=== PATIENT | female | born 1945 | race Caucasian/White ===

== ENCOUNTER 2017-03-30 10:36 | Outpatient (CLI) | payer MEDICARE ==
[2017-03-30 17:30] LABS: BASOPHILS # (AUTO) 0.1 10^3/uL (0.0-0.1); BASOPHILS % (AUTO) 1.4 %; EOSINOPHILS # (AUTO) 0.1 10^3/uL (0.0-0.7); HGB - HEMOGLOBIN 14.7 g/dL (12.0-16.0); LYMPHOCYTES # (AUTO) 1.2 10^3/uL (1.5-3.5); LYMPHOCYTES % (AUTO) 25.1 %; MEAN CORPUSCULAR HEMOGLOBIN 31.6 pg (27.0-31.0); MEAN CORPUSCULAR VOLUME 92.8 fL (81.0-99.0); MONOCYTES # (AUTO) 0.3 10^3/uL (0.0-1.0); MONOCYTES % (AUTO) 7.1 %; NEUTROPHILS # (AUTO) 2.9 10^3/uL (1.5-6.6); NEUTROPHILS % (AUTO) 63.4 %; PLT - PLATELET COUNT 189 10^3/uL (130-450); RED BLOOD COUNT 4.65 10^6/uL (4.20-5.40); WHITE BLOOD COUNT 4.6 x10^3/uL (4.8-10.8)
[2017-03-30 17:49] LABS: HB2 TOTAL 16.2 g/dL; HEMOGLOBIN A1C 1.11 g/dL; HEMOGLOBIN A1C % 8.4 % (4.6-6.2)
[2017-03-30 17:52] LABS: ALBUMIN 4.4 g/dL (3.2-5.5); ALBUMIN/GLOBULIN RATIO 1.8 (1.0-2.2); ALKALINE PHOSPHATASE 80 IU/L (42-121); ALT ALANINE AMINOTRANSFERASE 57 IU/L (10-60); AST ASPARTATE AMINOTRANSFERASE 33 IU/L (10-42); BILIRUBIN,TOTAL 0.7 mg/dL (0.2-1.0); BUN - BLOOD UREA NITROGEN 11 mg/dL (6-20); CALCIUM 9.1 mg/dL (8.5-10.3); CARBON DIOXIDE - CO2 29 mmol/L (21-32); CHLORIDE 95 mmol/L (101-111); CHOLESTEROL 215 mg/dL; CREATININE 0.8 mg/dL (0.4-1.0); GFR - MDRD 71 (>89); GLUCOSE 238 mg/dL (70-100); HDL CHOLESTEROL 36 mg/dL; LDL CHOLESTEROL,CALCULATED 128 mg/dL; LDL/HDL RATIO 3.6 (<4.4); SODIUM 132 mmol/L (135-145); TOTAL PROTEIN 6.8 g/dL (6.7-8.2); VLDL CHOLESTEROL 51 mg/dL
== END 2017-03-30 10:37 | disposition home or self-care (01) ==
LOC: LAB.F 10:36
PROVIDERS: ATTEND Nurse Practitioner Family
DX: E11.65 Type 2 diabetes mellitus with hyperglycemia (principal); E78.5 Hyperlipidemia, unspecified; E03.9 Hypothyroidism, unspecified; Z13.0 Encounter for screening for diseases of the blood and blood-forming organs and certain disorders involving the immune mechanism
CPT/HCPCS: 36415; 80053; 80061; 83036; 84443; 85025

== ENCOUNTER 2017-04-02 19:32 | Emergency (ER) | payer MEDICARE ==
[2017-04-02] MEDS ORDERED: HYDROmorphone 1 MG/ML SYRINGE IVP STA (20:29)
--- NOTE | 2017-04-02 20:31 | ED Physician Documentation ---
History of Present Illness - Stated complaint Stated Complaint: GLF - Chief complaint Chief Complaint: Trauma Hd/Nk - History obtained from History obtained from: Patient, Family - History of Present Illness Timing: How many hours ago (1) Pain level max: 9 Pain level now: 9 Improved by: remaining still Worsened by: any movement of the R arm. - Additonal information Additional information: Patient is a 71-year-old female who tripped and fell tonight at the [email or web address], she struck her head on the bar on the way down and then landed on the right ribs on a brass rail. Now complaining of pain to the right ribs and headache. No loss of consciousness. Was initially dazed and altered. No vomiting. No neck or back pain. Review of Systems Ten Systems: 10 systems reviewed and negative Constitutional: denies: Fever, Chills Ears: denies: Ear pain Nose: denies: Rhinorrhea / runny nose, Congestion Throat: denies: Sore throat Cardiac: denies: Chest pain / pressure Respiratory: denies: Cough, Wheezing GI: denies: Abdominal Pain, Nausea, Vomiting, Diarrhea Skin: denies: Rash Musculoskeletal: denies: Neck pain, Back pain Neurologic: reports: Headache, Head injury. denies: Focal weakness, Numbness, LOC PD PAST MEDICAL HISTORY - Past Medical History Past Medical History: Yes Cardiovascular: Hypertension Endocrine/Autoimmune: Type 2 diabetes, HyPOthyroidism Other Past Medical History: cervical cancer - Past Surgical History Past Surgical History: Yes - Present Medications Home Medications: Ambulatory Orders Medication Instructions Recorded Confirmed Cyclobenzaprine [Flexeril] 10 mg PO TID PRN #20 tablet 04/02/17 Hydrochlorothiazide 1 tab PO DAILY 04/02/17 04/02/17 Hydrocodone/Acetaminophen 1 - 2 each PO Q6H PRN #14 tablet 04/02/17 [Hydrocodon-Acetaminophen 5-325] Insulin Aspart [NovoLOG] 04/02/17 Insulin Lispro [Humalog] 04/02/17 Levothyroxine [Synthroid] 1 tab PO DAILY 04/02/17 04/02/17 Meloxicam [Mobic] 15 mg PO DAILY PRN #20 tablet 04/02/17 - Allergies Allergies/Adverse Reactions: Allergies Allergy/AdvReac Type Severity Reaction Status Date / Time metformin Allergy Unknown Verified 04/02/17 19:42 - Social History Does the pt smoke?: No Smoking Status: Never smoker ETOH Use: Wine Does the pt have substance abuse?: No PD ED PE NORMAL - Vitals Vital signs reviewed: Yes - General General: Alert and oriented X 3, No acute distress, Well developed/nourished - HEENT HEENT: Atraumatic, PERRL, Ears normal, Moist mucous membranes, Pharynx benign - Neck Neck: Supple, no meningeal sign, No bony TTP, Other (FROM without pain) - Cardiac Cardiac: RRR, Strong equal pulses - Respiratory Respiratory: No respiratory distress, Clear bilaterally, Other (significant TTP along the R mid axillar ribs. no crepitus. no ecchymosis. ) - Abdomen Abdomen: Soft, Non tender, Non distended - Back Back: No spinal TTP - Derm Derm: Warm and dry - Extremities Extremities: Other (No tenderness over the R clavicle, shoulder, humerus, scapula, elbow or forearm. NVI including axillary nerve) - Neuro Neuro: Alert and oriented X 3, marine mammal trainer 2-12 intact, No motor deficit, No sensory deficit, Normal speech Eye Opening: Spontaneous Motor: Obeys Commands Verbal: Oriented GCS Score: 15 - Psych Psych: Normal mood, Normal affect Results - Vitals Vitals: Vital Signs - 24 hr 04/02/17 04/02/17 04/02/17 19:35 19:48 23:56 Temperature 36.8 C 36.5 C 36.6 C Heart Rate 78 74 88 Respiratory 20 18 20 Rate Blood Pressure 148/65 H 169/97 H 157/84 H O2 Saturation 98 98 98 Oxygen O2 Source Room air - Labs Labs: Laboratory Tests 04/02/17 04/02/17 20:40 20:40 WBC 5.7 RBC 4.55 Hgb 14.6 Hct 42.2 MCV 92.8 MCH 32.1 H MCHC 34.6 RDW 12.7 Plt Count 198 MPV 8.4 Neut # 3.6 Lymph # 1.4 L [place] # 0.4 Eos # 0.1 Baso # 0.1 Absolute Nucleated RBC 0.00 Nucleated RBC % 0.0 Sodium 133 L Potassium 3.2 L Chloride 92 L Carbon Dioxide 28 Anion Gap 13.0 BUN 12 Creatinine 0.7 Estimated GFR (MDRD) 83 L Glucose 210 H Calcium 9.0 Total Bilirubin 0.7 AST 34 ALT 60 Alkaline Phosphatase 85 Total Protein 7.2 Albumin 4.5 Globulin 2.7 Albumin/Globulin Ratio 1.7 Lipase 14 L - Rads (name of study) head CT Radiology: Prelim report reviewed, EMP read contemporaneously, See rad report ( normal) chest CT Radiology: Prelim report reviewed, EMP read contemporaneously, See rad report ( normal) PD MEDICAL DECISION MAKING - ED course Complexity details: reviewed results, re-evaluated patient, considered differential, d/w patient, d/w family ED course: Patient is a 71-year-old female who presents to the emergency department after a fall today. She did strike her head, does not think she lost consciousness, but was mildly altered initially, therefore head CT was performed which shows no acute abnormalities. Also has significant tenderness over the right rib cage , unable to move her right arm because of the pain in her ribs. Therefore a CT scan was performed which shows no acute abnormalities. Pain well controlled. No spine injuries. Will follow up closely with her PCP. Full range of motion of the cervical spine without pain including full flexion and extension. Neurovascularly intact. Patient and family counseled regarding signs and symptoms for which I believe and urgent re-evaluation would be necessary. Patient with good understanding of and agreement to plan and is comfortable going home at this time This document was made in part using voice recognition software. While efforts are made to proofread this document, sound alike and grammatical errors may occur. Departure - Departure Disposition: 01 Home, Self Care Clinical Impression: Hyponatremia Contusion of rib on right side Qualifiers: Encounter type: initial encounter Qualified Code(s): S20.211A - Contusion of right front wall of thorax, initial encounter Head injury Qualifiers: Encounter type: initial encounter Qualified Code(s): S09.90XA - Unspecified injury of head, initial encounter Condition: Good Instructions: ED Contusion Chest Wall, ED Head Injury Closed Follow-Up: your,doctor in 1 week [Other] Prescriptions: Cyclobenzaprine [Flexeril] 10 mg PO TID PRN #20 tablet PRN Reason: Spasms Hydrocodone/Acetaminophen [Hydrocodon-Acetaminophen 5-325] 1 - 2 each PO Q6H PRN #14 tablet PRN Reason: pain Meloxicam [Mobic] 15 mg PO DAILY PRN #20 tablet PRN Reason: pain Comments: Return if you worsen. You will be very sore tomorrow. Your CT scans are normal tonight. Your sodium levels were mildly low tonight, you should have this rechecked with your doctor. Do not drink alcohol or drive while on narcotic pain medicine. Note that many narcotic pain relievers also contain tylenol/acetaminophen. Please ensure that your total dose of acetaminophen from all sources does not exceed 3 grams (3000mg) per day. You may constipated on this medication, take a stool softener such as "Colace" twice a day while you are on it. Also recommend a [id number]-stf-[id number] laxative such as senna or MiraLAX any day that you do not have a bowel movement. If you received narcotic pain medication in the emergency department, do not drive or operate machinery for the next 24 hours. Discharge Date/Time: 04/02/17 23:57
[2017-04-02 20:50] LABS: BASOPHILS # (AUTO) 0.1 10^3/uL (0.0-0.1); BASOPHILS % (AUTO) 1.3 %; EOSINOPHILS # (AUTO) 0.1 10^3/uL (0.0-0.7); HGB - HEMOGLOBIN 14.6 g/dL (12.0-16.0); LYMPHOCYTES # (AUTO) 1.4 10^3/uL (1.5-3.5); LYMPHOCYTES % (AUTO) 25.5 %; MEAN CORPUSCULAR HEMOGLOBIN 32.1 pg (27.0-31.0); MEAN CORPUSCULAR HGB CONC 34.6 g/dL (32.0-36.0); MEAN CORPUSCULAR VOLUME 92.8 fL (81.0-99.0); MEAN PLATELET VOLUME 8.4 fL (7.9-10.8); MONOCYTES # (AUTO) 0.4 10^3/uL (0.0-1.0); MONOCYTES % (AUTO) 6.8 %; NEUTROPHILS # (AUTO) 3.6 10^3/uL (1.5-6.6); NEUTROPHILS % (AUTO) 64.4 %; PLT - PLATELET COUNT 198 10^3/uL (130-450); RED BLOOD COUNT 4.55 10^6/uL (4.20-5.40); RED CELL DISTRIBUTION WIDTH 12.7 % (12.0-15.0); WHITE BLOOD COUNT 5.7 x10^3/uL (4.8-10.8)
[2017-04-02] MEDS ORDERED: IOPAMIDOL-300 100 ML VIAL ONE (20:50)
[2017-04-02 21:04] LABS: ALBUMIN 4.5 g/dL (3.2-5.5); ALBUMIN/GLOBULIN RATIO 1.7 (1.0-2.2); BILIRUBIN,TOTAL 0.7 mg/dL (0.2-1.0); CREATININE 0.7 mg/dL (0.4-1.0); TOTAL PROTEIN 7.2 g/dL (6.7-8.2)
[2017-04-02] MEDS ORDERED: IOPAMIDOL-300 100 ML VIAL IVP ONE (21:29)
[2017-04-02] MEDS ORDERED: ONDANSETRON 4 MG/2 ML VIAL IVP STA (21:35)
--- NOTE | 2017-04-02 21:47 | CT Report ---
EXAM: CT CHEST EXAM DATE: 04/02/2017 09:30 PM. CLINICAL HISTORY: Fall, R rib and chest pain. COMPARISONS: None. TECHNIQUE: Routine helical CT imaging was performed through the chest. IV contrast: 80 cc Isovue 300 IV. Reconstructions: Coronal and sagittal. In accordance with CT protocol optimization, one or more of the following dose reduction techniques w ere utilized for this exam: automated exposure control, adjustment of mA and/or KV based on patient s ize, or use of iterative reconstructive technique. FINDINGS: Lungs/Pleura: No nodules, bronchial thickening, consolidation, or edema. Pulmonary vasculature is nor mal. No pericardial or pleural effusion. No pneumothorax. Mediastinum: Normal. No adenopathy or masses. The heart and great vessels are normal. Bones: No fracture demonstrated. Visualized Abdomen: Liver parenchyma is low in density consistent with steatosis. Other: None. IMPRESSION: Negative CT chest. [facility] Referring Provider Line: [phone] SITE ID: [id number]
--- NOTE | 2017-04-02 21:49 | CT Report ---
EXAM: CT HEAD EXAM DATE: 04/02/2017 09:23 PM. CLINICAL HISTORY: Fall, head injury. COMPARISON: None. TECHNIQUE: Multiaxial CT images were obtained from the foramen magnum to the vertex. Reformats: Coron al. IV contrast: None. In accordance with CT protocol optimization, one or more of the following dose reduction techniques w ere utilized for this exam: automated exposure control, adjustment of mA and/or KV based on patient s ize, or use of iterative reconstructive technique. FINDINGS: Parenchyma: There are mild basal ganglia calcifications. Negative for intracranial acute hemorrhage. No midline shift or mass effect. Extraaxial Spaces: No subdural or epidural collections identified. Ventricles: Normal in size and position. Sinuses and Orbits: Imaged paranasal sinuses, orbits, and mastoids show no significant abnormality. Bones: No evidence of fracture or calvarial defect. Other: None. IMPRESSION: 1. No acute focal intracranial abnormality. [facility] Referring Provider Line: [phone] SITE ID: [id number]
[2017-04-02] MEDS ORDERED: KETOROLAC 60 MG/2 ML VIAL IVP STA (22:38)
[2017-04-02] MEDS ORDERED: LIDOCAINE PATCH 5% TOP STA (22:38)
[2017-04-02] MEDS ORDERED: CYCLOBENZAPRINE 10 MG TABLET PO STA (22:38)
[2017-04-02] MEDS ORDERED: SODIUM CHLORIDE 0.9% 1,000 ML IV ONE (22:44)
[2017-04-02] MEDS ORDERED: POTASSIUM BICARB 25 MEQ TABLET PO STA (22:45)
[2017-04-02 23:57] VITALS: BP 157/84
== END 2017-04-02 23:57 | disposition home or self-care (01) ==
LOC: ED 19:32
DX: E87.1 Hypo-osmolality and hyponatremia (principal); S20.211A Contusion of right front wall of thorax, initial encounter; S09.90XA Unspecified injury of head, initial encounter; W01.198A Fall on same level from slipping, tripping and stumbling with subsequent striking against other object, initial encounter; Y92.89 Other specified places as the place of occurrence of the external cause; I10 Essential (primary) hypertension; E11.9 Type 2 diabetes mellitus without complications; E03.9 Hypothyroidism, unspecified; Z85.41 Personal history of malignant neoplasm of cervix uteri; Z79.4 Long term (current) use of insulin
CPT/HCPCS: 36415; 70450; 71260; 80053; 83690; 85025; 96361; 96374; 96375; 99284; A9270; J1170; Q9967

== ENCOUNTER 2017-05-28 15:08 | Outpatient (CLI) | payer MEDICARE ==
--- NOTE | 2017-05-28 16:26 | Ultrasound Report ---
EXAM: THYROID ULTRASOUND EXAM DATE: 05/28/2017 03:47 PM. CLINICAL HISTORY: Asymptomatic menopausal state/thyroid nodule, left. COMPARISON: CT chest with contrast 04/02/2017. TECHNIQUE: Real time sonographic imaging of the thyroid was performed by the assistant general manager. Multiple re presentative static images were saved for review. FINDINGS: THYROID GLAND: Right Lobe: 3.0 x 1.1 x 1.4 cm, volume 2.4 cc. Normal background echotexture, but small in size. Right Lobe Nodules: None. Left Lobe: 3.3 x 0.8 x 1.7 cm, volume 2.3 cc. Normal background echotexture, but small in size. Left Lobe Nodules: Within the inferior pole, there is a well-circumscribed mildly hyperechoic solid l esion with small cystic spaces and no microcalcifications with internal vascularity by color Doppler measuring 0.7 x 0.7 x 0.6 cm. This is a low suspicion pattern by TOMA guidelines. A subcentimeter prob able cyst present within the inferior aspect of the left thyroid lobe anteriorly. Isthmus: 0.5 cm AP. Isthmic Nodules: Within the right aspect of the isthmus, there is a well-circumscribed mixed hypo- an d hyperechoic lesion which appears solid. There is a punctate focus of hyperechogenicity, which could represent a microcalcification. No internal vascularity by color Doppler. This measures 0.6 x 0.4 x 0.6 cm. While, if this focus does represent a microcalcification, the lesion may be considered high s uspicion, the small size is below TOMA limits for FNA. LYMPH NODES: No adenopathy demonstrated in the central or lateral compartment. OTHER: None. IMPRESSION: 1. There are two subcentimeter thyroid nodules, one in the left thyroid lobe and another in the isthm us, which do not meet FNA criteria given their small size. Recommend follow-up ultrasound in 12 month s. 2. Thyroid gland is smaller than typical measuring less than 5 cc when the right and left lobes are c ombined. Management recommendations are based on 2015 [place] [employer] Management Guidelines for A dult Patients with Thyroid Nodules and Differentiated Thyroid Cancer. [facility] Referring Provider Line: [phone] SITE ID: [id number]
== END 2017-05-28 15:09 | disposition home or self-care (01) ==
LOC: DI 15:08
PROVIDERS: ATTEND Nurse Practitioner Family
DX: E04.1 Nontoxic single thyroid nodule (principal); Z78.0 Asymptomatic menopausal state
CPT/HCPCS: 76536

== ENCOUNTER 2017-06-09 08:22 | Outpatient (CLI) | payer MEDICARE ==
--- NOTE | 2017-06-10 13:32 | Mammography Report ---
DIGITAL SCREENING MAMMOGRAM: 06/09/2017 CLINICAL INDICATION: A 72-year-old for screening. COMPARISON: 05/2016, 05/2015, 01/2014, 01/2013, 01/2012, 01/2011, 11/2009. TECHNIQUE: Routine CC and MLO projections were obtained of the breasts as well as bilateral laterally exaggerated craniocaudal views. FINDINGS: The breasts demonstrate heterogeneously dense fibroglandular parenchyma bilaterally. Coarse and punctate, typically benign calcifications are present. No suspicious masses, clustered microcalcifications, or regions of architectural distortion are identified. IMPRESSION: BENIGN FINDINGS. RECOMMENDATION: Routine annual screening unless otherwise clinically indicated. BIRADS CATEGORY 2 - BENIGN FINDINGS. STANDARD QUALIFYING STATEMENTS: 1. This examination was reviewed with the aid of Computer-Aided Detection (CAD). 2. A negative or benign imaging report should not delay biopsy if clinically suspicious findings are present. Consider surgical consultation if warranted. More than 5% of cancers are not identified by imaging. 3. Dense breasts may obscure an underlying neoplasm. TD: 06/10/2017 13:31
== END 2017-06-09 08:23 | disposition home or self-care (01) ==
LOC: DI 08:22
PROVIDERS: ATTEND Nurse Practitioner Family
DX: Z12.31 Encounter for screening mammogram for malignant neoplasm of breast (principal)
CPT/HCPCS: 77067

== ENCOUNTER 2017-06-09 08:23 | Outpatient (CLI) | payer MEDICARE ==
--- NOTE | 2017-06-10 09:43 | DEXA Report ---
DEXA SCAN: 06/09/2017 CLINICAL INDICATION: Postmenopausal. TECHNIQUE: Dual energy x-ray absorptiometry (DXA) was performed on a Evince system. Regions measured are the AP spine, femoral neck, and, if needed, forearm. COMPARISON: None. In accordance with the International Society for Clinical Densitometry (ISCD) guidelines, data from previous exams may be reanalyzed using current recommendations and techniques. This is done to allow a more accurate basis for comparison with the current study. FINDINGS: The data for the lumbar spine is as follows: REGION BMD (g/cm/cm) T-SCORE Z-SCORE L1 1.252 1.0 2.1 L2 1.555 3.0 4.1 L3 1.682 4.0 5.1 L4 1.728 4.4 5.5 TOTAL 1.575 3.3 4.4 NOTE: All evaluable vertebrae are used for classification. The data for the hip is as follows: REGION BMD (g/cm/cm) T-SCORE Z-SCORE Neck 0.838 -1.4 -0.1 TOTAL 1.079 0.6 1.6 NOTE: The femoral neck or total proximal femur, whichever is lowest, is used for classification. IMPRESSION: THE WHO CLASSIFICATION BASED ON THE INTERNATIONAL REFERENCE STANDARD IS OSTEOPENIA (REFERENCE LEFT FEMORAL NECK). THE FRACTURE RISK IS INCREASED. RECOMMENDATION: Patients with diagnosis of osteoporosis or osteopenia should have regular bone mineral density assessment. For those eligible for Medicare, routine testing is allowed once every 2 years. Testing frequency can be increased for patients who have rapidly progressing disease or for those who are receiving medical therapy to restore bone mass. COMMENT: World Health Organization (WHO) definitions for osteoporosis and osteopenia: NORMAL BMD: T-score at 1.0 or higher, fracture risk is low. OSTEOPENIA BMD: T-score between 1.0 and -2.5, fracture risk is increased. OSTEOPOROSIS BMD: T-score at 2.5 or lower, fracture risk high. National Osteoporosis Foundation recommends: 1. Obtain adequate dietary calcium (at least 1200 mg per day) and vitamin D (400 -800 international units per day). 2. Participate, as appropriate, in regular weightbearing and muscle- strengthening exercise. 3. Avoid tobacco use and reduce alcohol and caffeine intake. 4. For more detailed information see the website at www.NOF.org. MTDD
== END 2017-06-09 08:24 | disposition home or self-care (01) ==
LOC: DI 08:23
PROVIDERS: ATTEND Nurse Practitioner Family
DX: M85.88 Other specified disorders of bone density and structure, other site (principal)
CPT/HCPCS: 77080

== ENCOUNTER 2018-09-13 13:22 | Emergency (ER) | payer MEDICARE, OTHER ==
--- NOTE | 2018-09-13 14:30 | XRAY Report ---
Reason: not feeling well Procedure Date: 09/13/2018 Accession Number: [id number] / [id number] Procedure: XR - Chest 1 View X-Ray CPT Code: 35683 FULL RESULT: EXAM: CHEST RADIOGRAPHY EXAM DATE: 09/13/2018 02:10 PM. CLINICAL HISTORY: Not feeling well. Low blood pressure. Fatigue. COMPARISON: None. TECHNIQUE: 1 view. FINDINGS: Lungs/Pleura: No focal opacities evident. No pleural effusion. No pneumothorax. Mediastinum: Heart size is normal. Mediastinal contour is within normal limits. Aortic atherosclerosis. Other: Multiple healed right-sided rib fractures. IMPRESSION: 1. No acute disease in the chest. [facility]
[2018-09-13 14:56] LABS: BASOPHILS % (AUTO) 0.4 %; EOSINOPHILS # (AUTO) 0.1 10^3/uL (0.0-0.7); HGB - HEMOGLOBIN 13.1 g/dL (12.0-16.0); LYMPHOCYTES # (AUTO) 0.3 10^3/uL (1.5-3.5); MEAN CORPUSCULAR HEMOGLOBIN 28.5 pg (27.0-31.0); MEAN CORPUSCULAR HGB CONC 32.4 g/dL (32.0-36.0); MEAN CORPUSCULAR VOLUME 87.8 fL (81.0-99.0); MEAN PLATELET VOLUME 10.1 fL (7.9-10.8); MONOCYTES # (AUTO) 0.4 10^3/uL (0.0-1.0); MONOCYTES % (AUTO) 5.6 %; NEUTROPHILS # (AUTO) 6.1 10^3/uL (1.5-6.6); NEUTROPHILS % (AUTO) 88.3 %; PLT - PLATELET COUNT 330 10^3/uL (130-450); RED CELL DISTRIBUTION WIDTH 13.2 % (12.0-15.0); WHITE BLOOD COUNT 6.9 x10^3/uL (4.8-10.8)
[2018-09-13 15:14] LABS: ALBUMIN 2.9 g/dL (3.2-5.5); ALBUMIN/GLOBULIN RATIO 0.8 (1.0-2.2); BILIRUBIN,TOTAL 0.3 mg/dL (0.2-1.0); CALCIUM 8.8 mg/dL (8.5-10.3); CREATININE 0.8 mg/dL (0.4-1.0); TOTAL PROTEIN 6.7 g/dL (6.7-8.2)
[2018-09-13 16:26] LABS: BILIRUBIN,URINE NEGATIVE (NEGATIVE); GLUCOSE, URINE (UA) NEGATIVE (NEGATIVE); KETONES,URINE (UA) NEGATIVE (NEGATIVE); LEUKOCYTE ESTERASE, URINE LARGE (NEGATIVE); NITRITE,URINE NEGATIVE (NEGATIVE); OCCULT BLOOD,URINE NEGATIVE (NEGATIVE); PH,URINE 5.5 PH (5.0-7.5); PROTEIN,URINE NEGATIVE (NEGATIVE); UROBILINOGEN,URINE 0.2 (NORMAL) E.U./dL (NORMAL)
[2018-09-13 16:27] LABS: CLARITY,URINE HAZY (CLEAR)
[2018-09-13] MEDS ORDERED: cephALEXin 250 MG CAPSULE PO STA (16:56)
--- NOTE | 2018-09-13 16:58 | ED Physician Documentation ---
History of Present Illness - Stated complaint Stated Complaint: LOW BLOOD PRESSURE - Chief complaint Chief Complaint: Cardiac - History obtained from History obtained from: Patient - History of Present Illness Timing: How many weeks ago (several weeks) Pain level max: 0 Pain level now: 0 - Additonal information Additional information: 73-year-old female presents to the emergency department complaining of not feeling well for the past 2 weeks. She has lost approximately 30 to 40 pounds over the past few months. She has been dieting to achieve this. No fevers, does have some low back discomfort. She is just not been feeling well. She is wondering if her blood pressure medications need to be adjusted after the weight loss. Nothing makes it better or worse. No vomiting. No diarrhea. No abdominal pain. No cough. No headache. No focal weakness. No chest pain or dyspnea Review of Systems Ten Systems: 10 systems reviewed and negative Constitutional: denies: Fever, Chills Nose: denies: Rhinorrhea / runny nose, Congestion Throat: denies: Sore throat Cardiac: reports: Palpitations (States that her heart rate has been between 90 and 100). denies: Chest pain / pressure Respiratory: denies: Dyspnea, Cough, Wheezing GI: denies: Abdominal Pain, Nausea, Vomiting, Diarrhea Skin: denies: Rash Musculoskeletal: denies: Neck pain Neurologic: denies: Headache PD PAST MEDICAL HISTORY - Past Medical History Past Medical History: Yes Cardiovascular: Hypertension, High cholesterol Respiratory: None Neuro: None Endocrine/Autoimmune: None GI: None HEATING REPAIR TECHNICIAN: None : None HEENT: None Psych: None Musculoskeletal: None Derm: None - Past Surgical History Past Surgical History: Yes /HEATING REPAIR TECHNICIAN: Hysterectomy - Present Medications Home Medications: Ambulatory Orders Medication Instructions Recorded Confirmed Cephalexin [Keflex] 500 mg PO Q6H #28 capsule 09/13/18 - Allergies Allergies/Adverse Reactions: Allergies Allergy/AdvReac Type Severity Reaction Status Date / Time exenatide [From [place]] AdvReac Emesis Verified 09/13/18 13:31 metformin AdvReac Emesis Verified 09/13/18 13:31 - Social History Does the pt smoke?: No Smoking Status: Never smoker Does the pt drink ETOH?: Yes Does the pt have substance abuse?: No - Immunizations Immunizations are current?: Yes - POLST Patient has POLST: No PD ED PE NORMAL - Vitals Vital signs reviewed: Yes - General General: Alert and oriented X 3, No acute distress, Well developed/nourished - HEENT HEENT: PERRL, Moist mucous membranes - Neck Neck: Supple, no meningeal sign - Cardiac Cardiac: RRR, Strong equal pulses - Respiratory Respiratory: No respiratory distress, Clear bilaterally - Abdomen Abdomen: Soft, Non tender, Non distended - Back Back: No CVA TTP, No spinal TTP - Derm Derm: Warm and dry - Extremities Extremities: No edema - Neuro Neuro: Alert and oriented X 3 - Psych Psych: Normal mood, Normal affect Results - Vitals Vitals: Vital Signs - 24 hr 09/13/18 09/13/18 13:25 17:03 Temperature 36.7 C 36.3 C L Heart Rate 97 93 Respiratory 14 20 Rate Blood Pressure 138/56 H 124/48 L O2 Saturation 99 100 Oxygen O2 Source Room air - EKG (time done) 1338 Rate: Rate (enter#) (93) Rhythm: NSR Hector: Anterior hemiblock (LAFB) Intervals: Normal [place] QRS: Normal Ischemia: Normal ST segments, Other (Late R wave transition) - Labs Labs: Laboratory Tests 09/13/18 09/13/18 09/13/18 14:50 14:50 14:50 WBC 6.9 RBC 4.60 Hgb 13.1 Hct 40.4 MCV 87.8 MCH 28.5 MCHC 32.4 RDW 13.2 Plt Count 330 MPV 10.1 Neut # (Auto) 6.1 Lymph # (Auto) 0.3 L [place] # (Auto) 0.4 Eos # (Auto) 0.1 Baso # (Auto) 0.0 Absolute Nucleated RBC 0.00 Nucleated RBC % 0.0 Sodium 138 Potassium 3.3 L Chloride 97 L Carbon Dioxide 27 Anion Gap 14.0 H BUN 11 Creatinine 0.8 Estimated GFR (MDRD) 71 L Glucose 173 H Calcium 8.8 Total Bilirubin 0.3 AST 19 ALT 27 Alkaline Phosphatase 89 Troponin I < 0.04 Total Protein 6.7 Albumin 2.9 L Globulin 3.8 Albumin/Globulin Ratio 0.8 L Lipase 27 Urine Color Urine Clarity Urine pH Ur Specific [place] Urine Protein Urine Glucose (UA) Urine Ketones Urine Occult Blood Urine Nitrite Urine Bilirubin Urine Urobilinogen Ur Leukocyte Esterase Urine RBC Urine WBC Ur Squamous Epith Cells Urine Bacteria Ur Microscopic Review Urine Culture Comments 09/13/18 16:00 WBC RBC Hgb Hct MCV MCH MCHC RDW Plt Count MPV Neut # (Auto) Lymph # (Auto) [place] # (Auto) Eos # (Auto) Baso # (Auto) Absolute Nucleated RBC Nucleated RBC % Sodium Potassium Chloride Carbon Dioxide Anion Gap BUN Creatinine Estimated GFR (MDRD) Glucose Calcium Total Bilirubin AST ALT Alkaline Phosphatase Troponin I Total Protein Albumin Globulin Albumin/Globulin Ratio Lipase Urine Color YELLOW Urine Clarity HAZY Urine pH 5.5 Ur Specific [place] 1.010 Urine Protein NEGATIVE Urine Glucose (UA) NEGATIVE Urine Ketones NEGATIVE Urine Occult Blood NEGATIVE Urine Nitrite NEGATIVE Urine Bilirubin NEGATIVE Urine Urobilinogen 0.2 (NORMAL) Ur Leukocyte Esterase LARGE H Urine RBC 0-5 Urine WBC 11-25 H Ur Squamous Epith Cells MANY Squamous H Urine Bacteria Moderate H Ur Microscopic Review INDICATED Urine Culture Comments NOT INDICATED - Rads (name of study) cxr Radiology: Prelim report reviewed, EMP read contemporaneously, See rad report (No acute disease) PD MEDICAL DECISION MAKING - ED course Complexity details: reviewed results, re-evaluated patient, considered differential, d/w patient, d/w family ED course: Patient is well-appearing, nontoxic. Afebrile. Appears to have UTI. Will treat for this. No evidence of pyelonephritis. No evidence of sepsis. No acute laboratory abnormalities to explain her symptoms other than UTI. No evidence of acute coronary syndrome. Blood pressure and heart rate are normal here. Patient and family counseled regarding signs and symptoms for which I believe and urgent re-evaluation would be necessary. Patient with good understanding of and agreement to plan and is comfortable going home at this time This document was made in part using voice recognition software. While efforts are made to proofread this document, sound alike and grammatical errors may occur. Departure - Departure Disposition: Home, Self Care Clinical Impression: UTI (urinary tract infection) Qualifiers: Urinary tract infection type: acute cystitis Hematuria presence: without hematuria Qualified Code(s): N30.00 - Acute cystitis without hematuria Condition: Good Instructions: ED UTI Cystitis Female Follow-Up: your,doctor in 1 week [Other] Prescriptions: Cephalexin [Keflex] 500 mg PO Q6H #28 capsule Comments: Return if you worsen. Follow-up with your doctor for further evaluation and care. Take all antibiotics until gone. You should begin to feel better in 1 to 2 days. Discharge Date/Time: 09/13/18 17:06
[2018-09-13 17:01] LABS: BACTERIA,URINE Moderate /HPF (None Seen); RBC,URINE 0-5 /HPF (0-5); SQUAMOUS EPITHELIAL CELL,UR MANY Squamous (<= Few)
[2018-09-13 17:04] VITALS: BP 124/48
== END 2018-09-13 17:06 | disposition home or self-care (01) ==
LOC: ED 13:22 → MERGE 13:22 → ED 17:06
DX: N30.00 Acute cystitis without hematuria (principal); I10 Essential (primary) hypertension
CPT/HCPCS: 71045; 80053; 81001; 83690; 84484; 85025; 93005; 99283; A9270; 81003; 87086

== ENCOUNTER 2019-06-07 11:41 | Emergency (ER) | payer MEDICARE, OTHER ==
--- NOTE | 2019-06-07 12:21 | ED Physician Documentation ---
PD HPI URI - Stated complaint Stated Complaint: POSITIVE TEST - Chief complaint Chief Complaint: General - History obtained from History obtained from: Patient - History of Present Illness Timing - onset: How many weeks ago (1) Timing duration: Weeks (1) Timing details: Gradual onset (The patient has had a fevers cough general weakness and malaise for about a week. She tested positive for coronavirus done by her primary care. She has been at home with her but having less appetite and less oral intake. She has had increased general weakness and a feeling of dyspnea and fatigue today more so. Her was concerned and so called their primary care who referred him to the ER for evaluation. She denied significant trouble breathing per se but more general tiredness. She had had less urine output over the last couple of days. She denied any diarrhea or blood in her stool. She is still having some fevers but not quite as high in the last day.), Still present Associated symptoms: Fever, Nasal congestion, Dry cough, Dyspnea, NVD (nausea and less appetite. Only vomited once. No diarrhea.) Contributing factors: No: Sick contact, Travel, Immunocompromised (She had lymphoma and was receiving chemotherapy but her last dose was in mid February and was "cancer free at that point" without any subsequent chemotherapy the last 3 months.), COPD / asthma Worsened by: Activity Similar symptoms before: Has not had sx before Recently seen: Clinic (Had a coated positive nasal swab test about a week ago with results after a couple of days positive. She was prescribed oral antibiotics by her primary care for concern of pneumonia clinically and had been taking the antibiotics. She had not taken yesterday's dose because of decreased appetite and nausea.) Review of Systems Constitutional: reports: Fever, Chills, Myalgias, Fatigue Nose: reports: Congestion. denies: Rhinorrhea / runny nose Throat: denies: Sore throat Cardiac: denies: Chest pain / pressure, Palpitations, Pedal edema Respiratory: reports: Dyspnea, Cough. denies: Wheezing GI: reports: Nausea. denies: Abdominal Pain, Diarrhea : denies: Dysuria, Frequency Skin: denies: Rash, Lesions Neurologic: reports: Generalized weakness. denies: Focal weakness, Near syncope, Altered mental status, Headache PD PAST MEDICAL HISTORY - Past Medical History Cardiovascular: High cholesterol, Hypertension Respiratory: None Neuro: None Endocrine/Autoimmune: HyPOthyroidism, Type 2 diabetes, None GI: None SAFETY AND SECURITY MANAGER: None : None HEENT: None Psych: None Musculoskeletal: None Derm: None - Past Surgical History Past Surgical History: Yes /SAFETY AND SECURITY MANAGER: Hysterectomy - Present Medications Home Medications: Ambulatory Orders Medication Instructions Recorded Confirmed Levothyroxine [Synthroid] 1 tab PO DAILY 04/02/17 04/02/17 Cephalexin [Keflex] 500 mg PO Q6H #28 capsule 09/13/18 Ondansetron Odt [Zofran] 4 mg TL Q6H PRN #10 tablet 06/07/19 - Allergies Allergies/Adverse Reactions: Allergies Allergy/AdvReac Type Severity Reaction Status Date / Time metformin Allergy Unknown Verified 06/07/19 12:04 exenatide [From [place]] AdvReac Emesis Verified 06/07/19 12:04 - Social History Does the pt smoke?: No Smoking Status: Never smoker Does the pt drink ETOH?: Yes Does the pt have substance abuse?: No - Immunizations Immunizations are current?: Yes - POLST Patient has POLST: No PD ED PE NORMAL - Vitals Vital signs reviewed: Yes - General General: Alert and oriented X 3, Well developed/nourished - HEENT HEENT: Ears normal, Pharynx benign. No: Moist mucous membranes - Neck Neck: Supple, no meningeal sign, No adenopathy - Cardiac Cardiac: RRR, No murmur - Respiratory Respiratory: No: Clear bilaterally (Some mild congested sounds mainly in the mid lung aguayo on both sides. No notable wheezing.) - Abdomen Abdomen: Soft, Non tender - Derm Derm: Warm and dry. No: Normal color (mild pallor) - Extremities Extremities: No deformity, No edema, No calf tenderness / cord - Neuro Neuro: Alert and oriented X 3, No motor deficit, Normal speech Eye Opening: Spontaneous Motor: Obeys Commands Verbal: Oriented GCS Score: 15 Results - Vitals Vitals: Vital Signs - 24 hr 06/07/19 06/07/19 06/07/19 12:04 12:12 14:30 Temperature 37.6 C H Heart Rate 91 93 86 Respiratory 24 24 24 Rate Blood Pressure 136/59 H 149/59 H 159/75 H O2 Saturation 96 96 100 06/07/19 06/07/19 06/07/19 15:11 16:30 17:02 Temperature 38.2 C H 37.6 C H Heart Rate 89 78 80 Respiratory 25 H 22 24 Rate Blood Pressure 158/71 H 130/63 132/64 H O2 Saturation 99 97 97 06/07/19 18:04 Temperature Heart Rate 75 Respiratory 18 Rate Blood Pressure 126/54 L O2 Saturation 97 Oxygen O2 Source Room air - EKG (time done) 17:07 Rate: Rate (enter#) (77) Rhythm: NSR [place]: Normal Intervals: Normal NH QRS: Normal Ischemia: Normal ST segments. No: ST elevation c/w ischemia, ST depression - Labs Labs: Laboratory Tests 06/07/19 06/07/19 06/07/19 13:25 13:25 13:25 WBC 2.7 L RBC 3.73 L Hgb 11.3 L Hct 33.7 L MCV 90.3 MCH 30.3 MCHC 33.5 RDW 11.8 L Plt Count 171 MPV 10.7 Neut # (Auto) 2.4 Lymph # (Auto) 0.1 L [place] # (Auto) 0.2 Eos # (Auto) 0.0 Baso # (Auto) 0.0 Absolute Nucleated RBC 0.00 Nucleated RBC % 0.0 Manual Slide Review Indicated Platelet Estimate NORMAL (130-450,000) Platelet Morphology NORMAL APPEARANCE RBC Morph Micro Appear NORMAL APPEARANCE Sodium 136 Potassium 3.2 L Chloride 105 Carbon Dioxide 22 Anion Gap 9.0 BUN 12 Creatinine 0.7 Estimated GFR (MDRD) 82 L Glucose 149 H Calcium 8.3 L Magnesium 1.7 Total Bilirubin 0.5 AST 30 ALT 41 Alkaline Phosphatase 79 Troponin I High Sens 56.1 H* B-Natriuretic Peptide Total Protein 6.0 L Albumin 3.1 L Globulin 2.9 Albumin/Globulin Ratio 1.1 Lipase 25 06/07/19 06/07/19 13:25 15:45 WBC RBC Hgb Hct MCV MCH MCHC RDW Plt Count MPV Neut # (Auto) Lymph # (Auto) [place] # (Auto) Eos # (Auto) Baso # (Auto) Absolute Nucleated RBC Nucleated RBC % Manual Slide Review Platelet Estimate Platelet Morphology RBC Morph Micro Appear Sodium Potassium Chloride Carbon Dioxide Anion Gap BUN Creatinine Estimated GFR (MDRD) Glucose Calcium Magnesium Total Bilirubin AST ALT Alkaline Phosphatase Troponin I High Sens 74.7 H* B-Natriuretic Peptide 89 Total Protein Albumin Globulin Albumin/Globulin Ratio Lipase - Rads (name of study) chest xray Radiology: Prelim report reviewed (New peripheral midlung and basilar mild infiltrates consistent with likely viral pneumonia), See rad report PD MEDICAL DECISION MAKING - ED course Complexity details: reviewed results (Her potassium was slightly low and magnesium was borderline low. She was given IV fluids with considerable improvement in her general feeling of wellness and decreased weakness. She had a mom mild elevation of the troponin on initial labs. Repeat at 2 hours showed a slight elevation but not significant. EKG was normal. I think it was more demand ischemia related to dehydration and does not sound like an occlusive process. She is feeling much improved and not having any chest pain. I feel she is able to be discharged clinically. She and her are both willing and preferring to go home. They will return if worsening.), considered differential (The patient sounds like she is dehydrated with poor intake over the last couple of days. She is positive for coated 19 but her lung sounds actually not too bad. Her oxygenation is 96 to 99% on room air. Her lungs are showing slight congested sound towards the mid lung aguayo. There is no obvious wheezing. Her respirations are unlabored. In that regard she does not seem to have a considerable pneumonic process as yet. I think most of her weakness and symptoms relate to under hydration. Will check labs and give IV fluids and check a chest x-ray.), d/w patient Departure - Departure Disposition: 01 Home, Self Care Clinical Impression: Dehydration, Coronavirus infection, General weakness, Hypokalemia Condition: Stable Record reviewed to determine appropriate education?: Yes Follow-Up: Francine Lubin MD [Primary Care Provider] - Prescriptions: Ondansetron Odt [Zofran] 4 mg TL Q6H PRN #10 tablet PRN Reason: Nausea / Vomiting Comments: Try to stay well-hydrated. Ondansetron if needed for nausea. Add a potassium supplement daily or twice daily for several days. Return if worsening symptoms with breathing. At this point your oxygenation level is good and blood pressure and heart rate are good. Your chest x-ray shows very mild pneumonia developing. Discharge Date/Time: 06/07/19 18:11
[2019-06-07] MEDS ORDERED: ONDANSETRON 4 MG/2 ML VIAL IVP STA (12:50)
[2019-06-07] MEDS ORDERED: cefTRIAXone 1 GM VIAL IVP STA (12:52)
[2019-06-07] MEDS ORDERED: SODIUM CHLORIDE 0.9% 1,000 ML IV ONE ×2 (12:52→15:25)
--- NOTE | 2019-06-07 13:18 | XRAY Report ---
Reason: dyspnea and cough Procedure Date: 06/07/2019 Accession Number: [id number] / [id number] Procedure: XR - Chest 1 View X-Ray CPT Code: 82938 Final Report FULL RESULT: EXAM: CHEST RADIOGRAPHY EXAM DATE: 06/07/2019 01:07 PM. CLINICAL HISTORY: Dyspnea and cough. COMPARISON: CHEST 1 VIEW 09/13/2018 2:08 PM. TECHNIQUE: 1 view. FINDINGS: Lungs/Pleura: Subtle infiltrates in the bilateral peripheral mid lungs and left base. No pleural effusion or pneumothorax. Mediastinum: Normal cardiomediastinal contour. Atherosclerotic calcifications within the aortic arch. A new right-sided port catheter terminates in the mid SVC. Other: Multiple healed right posterolateral rib fracture deformities. IMPRESSION: New subtle infiltrates in the bilateral peripheral mid lungs and left base, appearance and distribution suspicious for viral pneumonia. [facility]
[2019-06-07] MEDS: SODIUM CHLORIDE 0.9% 1,000 ML IV ONE ×4 (13:25→13:32)
[2019-06-07 13:27] LABS: EOSINOPHILS % (AUTO) 1.1 %; HGB - HEMOGLOBIN 11.3 g/dL (12.0-16.0); LYMPHOCYTES # (AUTO) 0.1 10^3/uL (1.5-3.5); LYMPHOCYTES % (AUTO) 3.3 %; MEAN CORPUSCULAR HEMOGLOBIN 30.3 pg (27.0-31.0); MEAN CORPUSCULAR HGB CONC 33.5 g/dL (32.0-36.0); MEAN CORPUSCULAR VOLUME 90.3 fL (81.0-99.0); MEAN PLATELET VOLUME 10.7 fL (7.9-10.8); MONOCYTES # (AUTO) 0.2 10^3/uL (0.0-1.0); MONOCYTES % (AUTO) 8.5 %; NEUTROPHILS # (AUTO) 2.4 10^3/uL (1.5-6.6); NEUTROPHILS % (AUTO) 86.4 %; PLT - PLATELET COUNT 171 10^3/uL (130-450); RED BLOOD COUNT 3.73 10^6/uL (4.20-5.40); RED CELL DISTRIBUTION WIDTH 11.8 % (12.0-15.0); WHITE BLOOD COUNT 2.7 x10^3/uL (4.8-10.8)
[2019-06-07 13:41] LABS: ALBUMIN 3.1 g/dL (3.2-5.5); ALBUMIN/GLOBULIN RATIO 1.1 (1.0-2.2); BILIRUBIN,TOTAL 0.5 mg/dL (0.2-1.0); CALCIUM 8.3 mg/dL (8.5-10.3); CREATININE 0.7 mg/dL (0.4-1.0); MAGNESIUM 1.7 mg/dL (1.7-2.8)
[2019-06-07 13:42] LABS: PLATELET ESTIMATE, MANUAL NORMAL (130-450,000) (NORMAL); PLATELET MORPHOLOGY NORMAL APPEARANCE (NORMAL); RBC MORPHOLOGY (MULTIPLE) NORMAL APPEARANCE (NORMAL)
[2019-06-07] MEDS ORDERED: MAGNESIUM SULFATE 2 GRAM 2 GM/50 ML BAG IV ONE (13:48)
[2019-06-07] MEDS ORDERED: POTASSIUM CHLOR 10 MEQ/100 ML 10 MEQ/100 ML BAG IV ONE (13:48)
[2019-06-07] MEDS ORDERED: ACETAMINOPHEN 500 MG TABLET PO STA (14:50)
[2019-06-07 18:05] VITALS: BP 126/54
== END 2019-06-07 18:11 | disposition home or self-care (01) ==
LOC: ED 11:41
DX: J12.89 Other viral pneumonia (principal); B97.29 Other coronavirus as the cause of diseases classified elsewhere; E11.9 Type 2 diabetes mellitus without complications; E86.0 Dehydration; E87.6 Hypokalemia
CPT/HCPCS: 36415; 71045; 80053; 83690; 83735; 83880; 84484; 85025; 93005; 96361; 96365; 96368; 96375; 99284; 99285; A9270